=== PATIENT | female | born 1955 | race Caucasian/White ===

== ENCOUNTER 2020-12-24 18:08 | Inpatient (IN) ==
[2020-12-25] MEDS ORDERED: Ipratropium/Albuterol Neb 3 ML IH PRN (15:05)
[2020-12-25] MEDS ORDERED: Dextrose Gel 15 GM/37.5 ML TUBE PO PRN ×2 (15:06)
[2020-12-25] MEDS ORDERED: D5% in Water 1,000 ML IVC PRN (15:06)
[2020-12-25] MEDS ORDERED: *HR* Dextrose 50 % in Water (Syg) 50 ML SYRINGE IVP PRN (15:06)
[2020-12-25] MEDS: Insulin LISPRO 300 UNITS/3 ML VIAL SUBQ SCH (18:58)
[2020-12-25] MEDS: carvediloL 6.25 MG TABLET PO SCH (19:06)
[2020-12-25] MEDS: Ipratropium/Albuterol Neb 3 ML IH SCH (20:54)
[2020-12-25] MEDS: rOPINIRole 1 MG TABLET PO SCH (21:35)
[2020-12-25] MEDS: lisinopriL 20 MG TABLET PO SCH (21:35)
[2020-12-25] MEDS: *HR* Metformin 500 MG TABLET PO SCH (21:44)
[2020-12-25] MEDS: acetaZOLAMIDE 250 MG TABLET PO SCH (21:46)
[2020-12-26] MEDS: rOPINIRole 1 MG TABLET PO SCH ×6 (00:25→22:50)
[2020-12-26] MEDS: Ipratropium/Albuterol Neb 3 ML IH SCH ×4 (03:49→22:06)
[2020-12-26 04:53] LABS: Basophils % 0.2 %; Eosinophils # 0.1 K/mcL (0.0-0.6); Eosinophils % 2.1 %; Hemoglobin 7.5 g/dL (11.5-15.4); Immature Granulocytes % 0.6 % (0-4); Lymphocytes # 0.7 K/mcL (0.6-4.6); Lymphocytes % 12.7 %; Mean Corpuscular HGB Conc 27.8 g/dL (31.6-35.5); Mean Corpuscular Hemoglobin 28.4 pg (28.0-33.3); Mean Corpuscular Volume 102.3 fL (83.0-100.0); Mean Platelet Volume 11.6 fL (9.4-12.4); Monocytes # 0.4 K/mcL (0.0-1.3); Monocytes % 6.7 %; Neutrophils # 4.2 K/mcL (1.6-8.9); Red Blood Count 2.64 M/mcL (3.82-4.97); Segmented Neutrophils % 77.7 %; White Blood Count 5.3 K/mcL (4.3-11.1)
[2020-12-26 04:56] LABS: Platelet Count 79 K/mcL (140-400)
[2020-12-26 05:02] LABS: Platelet Estimate Decreased (Normal)
[2020-12-26 05:03] LABS: Hypochromasia Present (Not Present)
[2020-12-26 05:21] LABS: BUN/Creatinine Ratio 28 (6-26); Blood Urea Nitrogen 31 mg/dL (8-23); Calcium 9.6 mg/dL (8.6-10.3); Carbon Dioxide 40 mEq/L (23-29); Chloride 97 mEq/L (98-107); Glucose 101 mg/dL (70-105); Osmolality,Calculated 299 (280-300); Potassium 4.5 mEq/L (3.5-5.1); Sodium 141 mEq/L (136-145); eGFR For African Americans > 60 (> 60); eGFR For Non-African Americans 50 (> 60)
[2020-12-26] MEDS ORDERED: *HR* Enoxaparin 40 MG/0.4 ML SYRINGE SQ SCH (07:00)
[2020-12-26] MEDS ORDERED: NON-FORMULARY MEDICATION 1 EACH EACH (Fluticasone/Umeclidin/Vilanter [Trelegy Ellipta 100- IH SCH (09:00)
[2020-12-26] MEDS: Insulin LISPRO 300 UNITS/3 ML VIAL SUBQ SCH ×3 (09:05→17:20)
[2020-12-26] MEDS ORDERED: Budesonide/Formoterol 160/4.5 1 PUFF INH IH SCH (10:00)
[2020-12-26] MEDS: *HR* Metformin 500 MG TABLET PO SCH ×2 (10:11→20:42)
[2020-12-26] MEDS: acetaZOLAMIDE 250 MG TABLET PO SCH ×2 (10:15→20:42)
[2020-12-26] MEDS: carvediloL 6.25 MG TABLET PO SCH ×2 (10:15→17:23)
[2020-12-26] MEDS: Tiotropium 10 INH DOSE IH SCH (11:05)
[2020-12-26] MEDS: Loratadine 10 MG TABLET PO SCH (17:23)
[2020-12-26] MEDS: lisinopriL 20 MG TABLET PO SCH (20:41)
[2020-12-27] MEDS: Ipratropium/Albuterol Neb 3 ML IH SCH ×4 (03:38→22:06)
[2020-12-27 06:58] LABS: Hematocrit 28.4 % (35.3-44.9); Hemoglobin 8.1 g/dL (11.5-15.4); Mean Corpuscular HGB Conc 28.5 g/dL (31.6-35.5); Mean Corpuscular Hemoglobin 28.7 pg (28.0-33.3); Mean Corpuscular Volume 100.7 fL (83.0-100.0); Mean Platelet Volume 11.8 fL (9.4-12.4); Platelet Count 102 K/mcL (140-400); Red Blood Count 2.82 M/mcL (3.82-4.97); Red Cell Distribution Width 17.1 % (11.5-14.5); White Blood Count 5.3 K/mcL (4.3-11.1)
[2020-12-27 07:43] LABS: Albumin 4.3 g/dL (3.5-5.7); Bilirubin,Total 0.6 mg/dL (0.3-1.0); Calcium 9.8 mg/dL (8.6-10.3); Globulin 2.1 g/dL (2.4-3.5); Magnesium 1.8 mg/dL (1.6-2.6); Potassium 4.8 mEq/L (3.5-5.1); Total Protein 6.4 g/dL (6.4-8.9)
[2020-12-27] MEDS: Insulin LISPRO 300 UNITS/3 ML VIAL SUBQ SCH ×3 (08:21→16:41)
[2020-12-27] MEDS: carvediloL 6.25 MG TABLET PO SCH ×2 (08:31→17:40)
[2020-12-27] MEDS: acetaZOLAMIDE 250 MG TABLET PO SCH ×2 (08:32→19:48)
[2020-12-27] MEDS: *HR* Metformin 500 MG TABLET PO SCH (08:32)
[2020-12-27] MEDS: Tiotropium 10 INH DOSE IH SCH (11:51)
[2020-12-27] MEDS: Loratadine 10 MG TABLET PO SCH (17:41)
[2020-12-27] MEDS: Acetaminophen 325 MG TABLET PO PRN (18:21)
[2020-12-27] MEDS: lisinopriL 20 MG TABLET PO SCH (19:49)
[2020-12-27] MEDS: Carbamide Peroxide 150 DROP/15 ML BOTTLE LEFT EAR SCH (20:03)
[2020-12-27] MEDS: Carbamide Peroxide 150 DROP/15 ML BOTTLE RIGHT EAR SCH (20:04)
[2020-12-27] MEDS: rOPINIRole 1 MG TABLET PO SCH (21:27)
[2020-12-28] MEDS: Ipratropium/Albuterol Neb 3 ML IH SCH ×4 (04:12→21:48)
[2020-12-28] MEDS: Insulin LISPRO 300 UNITS/3 ML VIAL SUBQ SCH ×3 (09:02→16:48)
[2020-12-28] MEDS: acetaZOLAMIDE 250 MG TABLET PO SCH ×2 (09:10→20:02)
[2020-12-28] MEDS: Carbamide Peroxide 150 DROP/15 ML BOTTLE LEFT EAR SCH ×2 (09:10→20:03)
[2020-12-28] MEDS: carvediloL 6.25 MG TABLET PO SCH ×2 (09:10→16:43)
[2020-12-28] MEDS: Carbamide Peroxide 150 DROP/15 ML BOTTLE RIGHT EAR SCH ×2 (09:10→20:03)
[2020-12-28] MEDS: Tiotropium 10 INH DOSE IH SCH (10:34)
[2020-12-28] MEDS: Loratadine 10 MG TABLET PO SCH (16:46)
[2020-12-28 18:49] LABS: ABG Base Excess 9 mEq/L (-2 to 3); ABG HCO3 39 mEq/L (21-27); ABG Oxygen Saturation 90 % (95-98); ABG PCO2 94 mmHg (35-45); ABG PH 7.22 pH Units (7.32-7.45); ABG PO2 73 mmHg (85-104); ABG TCO2 42 mEq/L (20-26)
[2020-12-28] MEDS: rOPINIRole 1 MG TABLET PO SCH (20:02)
[2020-12-29] MEDS: Ipratropium/Albuterol Neb 3 ML IH SCH ×4 (04:02→22:16)
[2020-12-29] MEDS: Acetaminophen 325 MG TABLET PO PRN ×2 (05:26→21:53)
[2020-12-29 07:19] LABS: Basophils % 0.2 %; Eosinophils # 0.1 K/mcL (0.0-0.6); Hematocrit 24.3 % (35.3-44.9); Immature Granulocytes % 0.5 % (0-4); Lymphocytes # 0.8 K/mcL (0.6-4.6); Lymphocytes % 19.2 %; Mean Corpuscular HGB Conc 28.8 g/dL (31.6-35.5); Mean Corpuscular Hemoglobin 28.9 pg (28.0-33.3); Mean Corpuscular Volume 100.4 fL (83.0-100.0); Mean Platelet Volume 11.5 fL (9.4-12.4); Monocytes # 0.4 K/mcL (0.0-1.3); Neutrophils # 2.7 K/mcL (1.6-8.9); Red Blood Count 2.42 M/mcL (3.82-4.97); Red Cell Distribution Width 16.7 % (11.5-14.5); Segmented Neutrophils % 68.1 %
[2020-12-29 07:20] LABS: Platelet Count 89 K/mcL (140-400)
[2020-12-29 07:36] LABS: Potassium 4.4 mEq/L (3.5-5.1)
[2020-12-29] MEDS: acetaZOLAMIDE 250 MG TABLET PO SCH (07:59)
[2020-12-29] MEDS: carvediloL 6.25 MG TABLET PO SCH ×2 (07:59→16:42)
[2020-12-29] MEDS: Carbamide Peroxide 150 DROP/15 ML BOTTLE RIGHT EAR SCH ×2 (08:00→21:53)
[2020-12-29] MEDS: Insulin LISPRO 300 UNITS/3 ML VIAL SUBQ SCH ×3 (08:13→16:37)
[2020-12-29] MEDS: Carbamide Peroxide 150 DROP/15 ML BOTTLE LEFT EAR SCH ×2 (08:14→21:53)
[2020-12-29] MEDS ORDERED: acetaZOLAMIDE 250 MG TABLET PO SCH (09:00)
[2020-12-29] MEDS: Tiotropium 10 INH DOSE IH SCH (09:24)
[2020-12-29] MEDS: Loratadine 10 MG TABLET PO SCH (16:42)
[2020-12-29] MEDS: rOPINIRole 1 MG TABLET PO SCH (21:53)
[2020-12-29] MEDS: rOPINIRole 1 MG TABLET PO PRN (21:58)
[2020-12-30] MEDS: Ipratropium/Albuterol Neb 3 ML IH SCH ×4 (04:07→21:05)
[2020-12-30 04:27] LABS: Hematocrit 25.5 % (35.3-44.9)
[2020-12-30 04:30] LABS: Hemoglobin 7.2 g/dL (11.5-15.4)
[2020-12-30 04:44] LABS: Calcium 9.1 mg/dL (8.6-10.3); Magnesium 1.8 mg/dL (1.6-2.6); Potassium 4.7 mEq/L (3.5-5.1)
[2020-12-30] MEDS ORDERED: acetaZOLAMIDE 250 MG TABLET PO SCH (09:00)
[2020-12-30] MEDS: Insulin LISPRO 300 UNITS/3 ML VIAL SUBQ SCH ×3 (09:22→16:52)
[2020-12-30] MEDS: Acetaminophen 325 MG TABLET PO PRN ×2 (09:32→16:52)
[2020-12-30] MEDS: carvediloL 6.25 MG TABLET PO SCH ×2 (09:32→16:53)
[2020-12-30] MEDS: Carbamide Peroxide 150 DROP/15 ML BOTTLE LEFT EAR SCH ×2 (09:33→20:48)
[2020-12-30] MEDS: Carbamide Peroxide 150 DROP/15 ML BOTTLE RIGHT EAR SCH ×2 (09:33→20:48)
[2020-12-30] MEDS: Furosemide 40 MG TABLET PO SCH (09:38)
[2020-12-30] MEDS: Tiotropium 10 INH DOSE IH SCH (10:19)
[2020-12-30] MEDS: Loratadine 10 MG TABLET PO SCH (16:53)
[2020-12-30] MEDS: rOPINIRole 1 MG TABLET PO SCH (20:49)
[2020-12-31] MEDS: Ipratropium/Albuterol Neb 3 ML IH SCH ×4 (03:44→21:36)
[2020-12-31 05:36] LABS: Basophils % 0.2 %; Eosinophils # 0.1 K/mcL (0.0-0.6); Eosinophils % 2.5 %; Hematocrit 26.6 % (35.3-44.9); Hemoglobin 7.4 g/dL (11.5-15.4); Immature Granulocytes % 0.8 % (0-4); Lymphocytes # 0.9 K/mcL (0.6-4.6); Lymphocytes % 16.3 %; Mean Corpuscular HGB Conc 27.8 g/dL (31.6-35.5); Mean Corpuscular Hemoglobin 28.8 pg (28.0-33.3); Mean Corpuscular Volume 103.5 fL (83.0-100.0); Mean Platelet Volume 11.1 fL (9.4-12.4); Monocytes # 0.4 K/mcL (0.0-1.3); Monocytes % 7.9 %; Neutrophils # 3.8 K/mcL (1.6-8.9); Platelet Count 101 K/mcL (140-400); Red Blood Count 2.57 M/mcL (3.82-4.97); Red Cell Distribution Width 16.8 % (11.5-14.5); Segmented Neutrophils % 72.3 %; White Blood Count 5.2 K/mcL (4.3-11.1)
[2020-12-31 05:50] LABS: Calcium 8.9 mg/dL (8.6-10.3)
[2020-12-31 06:23] LABS: Basophilic Stippling 1+ (Not Present); Hypochromasia Present (Not Present); Platelet Estimate Slight Decrease (Normal); Polychromasia 1+ (Not Present)
[2020-12-31] MEDS: Insulin LISPRO 300 UNITS/3 ML VIAL SUBQ SCH ×3 (10:15→16:54)
[2020-12-31] MEDS: Tiotropium 10 INH DOSE IH SCH (10:24)
[2020-12-31] MEDS: Furosemide 40 MG TABLET PO SCH (10:26)
[2020-12-31] MEDS: carvediloL 6.25 MG TABLET PO SCH ×2 (10:26→16:54)
[2020-12-31] MEDS: Carbamide Peroxide 150 DROP/15 ML BOTTLE RIGHT EAR SCH ×2 (10:27→21:32)
[2020-12-31] MEDS: Carbamide Peroxide 150 DROP/15 ML BOTTLE LEFT EAR SCH ×2 (10:27→21:32)
[2020-12-31] MEDS ORDERED: Cyanocobalamin (B-12) 1,000 MCG/ML VIAL SQ ONE (15:45)
[2020-12-31] MEDS: Loratadine 10 MG TABLET PO SCH (16:54)
[2020-12-31 17:16] LABS: ABG Base Excess 7 mEq/L (-2 to 3); ABG HCO3 38 mEq/L (21-27); ABG Oxygen Saturation 85 % (95-98); ABG PCO2 95 mmHg (35-45); ABG PH 7.21 pH Units (7.32-7.45); ABG PO2 64 mmHg (85-104); ABG TCO2 41 mEq/L (20-26)
[2020-12-31] MEDS: Acetaminophen 325 MG TABLET PO PRN (19:51)
[2020-12-31] MEDS: rOPINIRole 1 MG TABLET PO SCH (21:32)
[2020-12-31] MEDS: rOPINIRole 1 MG TABLET PO PRN (22:39)
[2021-01-01] MEDS: Ipratropium/Albuterol Neb 3 ML IH SCH ×4 (03:52→20:46)
[2021-01-01] MEDS: metroNIDAZOLE 500 MG TABLET PO SCH ×4 (03:58→20:42)
[2021-01-01] MEDS: Doxycycline 100 MG CAPSULE PO SCH ×3 (03:58→20:42)
[2021-01-01 04:31] LABS: Basophils % 0.3 %; Eosinophils # 0.1 K/mcL (0.0-0.6); Eosinophils % 2.2 %; Hematocrit 26.4 % (35.3-44.9); Hemoglobin 7.3 g/dL (11.5-15.4); Immature Granulocytes % 0.5 % (0-4); Lymphocytes # 0.6 K/mcL (0.6-4.6); Lymphocytes % 17.4 %; Mean Corpuscular HGB Conc 27.7 g/dL (31.6-35.5); Mean Corpuscular Hemoglobin 28.5 pg (28.0-33.3); Mean Corpuscular Volume 103.1 fL (83.0-100.0); Mean Platelet Volume 11.2 fL (9.4-12.4); Monocytes # 0.3 K/mcL (0.0-1.3); Monocytes % 7.6 %; Red Blood Count 2.56 M/mcL (3.82-4.97); Red Cell Distribution Width 16.5 % (11.5-14.5)
[2021-01-01 04:36] LABS: Neutrophils # 2.7 K/mcL (1.6-8.9); Platelet Count 97 K/mcL (140-400); White Blood Count 3.7 K/mcL (4.3-11.1)
[2021-01-01 04:37] LABS: Basophilic Stippling 1+ (Not Present); Platelet Estimate Decreased (Normal)
[2021-01-01 04:38] LABS: Hypochromasia Present (Not Present)
[2021-01-01 04:48] LABS: Albumin 3.9 g/dL (3.5-5.7); Albumin/Globulin Ratio 2.2 (1.1-2.2); Bilirubin,Total 0.7 mg/dL (0.3-1.0); Globulin 1.8 g/dL (2.4-3.5); Total Protein 5.7 g/dL (6.4-8.9)
[2021-01-01] MEDS: Insulin LISPRO 300 UNITS/3 ML VIAL SUBQ SCH ×3 (07:48→16:32)
[2021-01-01] MEDS: Acetaminophen 325 MG TABLET PO PRN (07:52)
[2021-01-01] MEDS: carvediloL 6.25 MG TABLET PO SCH ×2 (07:54→15:58)
[2021-01-01] MEDS: Carbamide Peroxide 150 DROP/15 ML BOTTLE RIGHT EAR SCH ×2 (07:55→20:48)
[2021-01-01] MEDS: Carbamide Peroxide 150 DROP/15 ML BOTTLE LEFT EAR SCH ×2 (07:55→20:43)
[2021-01-01] MEDS: Furosemide 40 MG TABLET PO SCH (07:55)
[2021-01-01] MEDS: Tiotropium 10 INH DOSE IH SCH (09:22)
[2021-01-01] MEDS ORDERED: Furosemide 40 MG/4 ML VIAL IVP ONE (09:39)
[2021-01-01] MEDS ORDERED: 0.9 % Sodium Chloride 250 ML IVC SCH (09:45)
[2021-01-01] MEDS: Loratadine 10 MG TABLET PO SCH (17:02)
[2021-01-01] MEDS: rOPINIRole 1 MG TABLET PO SCH (20:42)
[2021-01-01] MEDS: rOPINIRole 1 MG TABLET PO PRN (22:40)
[2021-01-02 01:14] LABS: Acinetobacter baumannii by PCR Not Detected (Not Detect); Candida albicans by PCR Not Detected (Not Detect); Candida glabrata by PCR Not Detected (Not Detect); Candida krusei by PCR Not Detected (Not Detect); Candida parapsilosis by PCR Not Detected (Not Detect); Candida tropicalis by PCR Not Detected (Not Detect); Enterobacter cloacae Cmplx PCR Not Detected (Not Detect); Enterobacteriaceae by PCR Not Detected (Not Detect); Enterococcus by PCR Not Detected (Not Detect); Escherichia coli by PCR Not Detected (Not Detect); Klebsiella oxytoca by PCR Not Detected (Not Detect); Klebsiella pneumoniae by PCR Not Detected (Not Detect); Proteus by PCR Not Detected (Not Detect); Pseudomonas aeruginosa by PCR Not Detected (Not Detect); Serratia marcescens by PCR Not Detected (Not Detect); Staphylococcus aureus by PCR Not Detected (Not Detect); Staphylococcus by PCR DETECTED (Not Detect); Streptococcus agalactiae(B)PCR Not Detected (Not Detect); Streptococcus by PCR Not Detected (Not Detect); Streptococcus pneumoniae PCR Not Detected (Not Detect); Streptococcus pyogenes (A) PCR Not Detected (Not Detect); mecA Methicillin-Resist Gene DETECTED (Not Detect)
[2021-01-02] MEDS: Ipratropium/Albuterol Neb 3 ML IH SCH ×4 (03:42→20:27)
[2021-01-02 05:08] LABS: Basophils % 0.2 %; Eosinophils # 0.1 K/mcL (0.0-0.6); Eosinophils % 3.2 %; Hematocrit 26.8 % (35.3-44.9); Hemoglobin 7.9 g/dL (11.5-15.4); Immature Granulocytes % 0.5 % (0-4); Lymphocytes % 18.2 %; Mean Corpuscular HGB Conc 29.5 g/dL (31.6-35.5); Mean Corpuscular Hemoglobin 29.3 pg (28.0-33.3); Mean Corpuscular Volume 99.3 fL (83.0-100.0); Monocytes # 0.3 K/mcL (0.0-1.3); Monocytes % 7.4 %; Neutrophils # 2.9 K/mcL (1.6-8.9); Platelet Count 113 K/mcL (140-400); Segmented Neutrophils % 70.5 %; White Blood Count 4.1 K/mcL (4.3-11.1)
[2021-01-02 05:14] LABS: Lymphocytes # 0.8 K/mcL (0.6-4.6); Platelet Estimate Slight Decrease (Normal)
[2021-01-02 05:33] LABS: Albumin 3.8 g/dL (3.5-5.7); Albumin/Globulin Ratio 2.2 (1.1-2.2); Bilirubin,Total 0.5 mg/dL (0.3-1.0); Globulin 1.7 g/dL (2.4-3.5); Magnesium 1.6 mg/dL (1.6-2.6); Potassium 4.7 mEq/L (3.5-5.1); Total Protein 5.5 g/dL (6.4-8.9)
[2021-01-02] MEDS: Insulin LISPRO 300 UNITS/3 ML VIAL SUBQ SCH ×3 (07:49→16:39)
[2021-01-02] MEDS: Furosemide 40 MG TABLET PO SCH (08:02)
[2021-01-02] MEDS: Doxycycline 100 MG CAPSULE PO SCH ×2 (08:02→22:04)
[2021-01-02] MEDS: carvediloL 6.25 MG TABLET PO SCH ×2 (08:02→16:59)
[2021-01-02] MEDS: metroNIDAZOLE 500 MG TABLET PO SCH ×3 (08:02→22:04)
[2021-01-02] MEDS: Carbamide Peroxide 150 DROP/15 ML BOTTLE LEFT EAR SCH ×2 (08:04→22:04)
[2021-01-02] MEDS: Carbamide Peroxide 150 DROP/15 ML BOTTLE RIGHT EAR SCH ×2 (08:05→22:04)
[2021-01-02] MEDS: Acetaminophen 325 MG TABLET PO PRN (08:07)
[2021-01-02] MEDS: Tiotropium 10 INH DOSE IH SCH (10:41)
[2021-01-02] MEDS: rOPINIRole 1 MG TABLET PO SCH (16:59)
[2021-01-02] MEDS: Loratadine 10 MG TABLET PO SCH (16:59)
[2021-01-02] MEDS: rOPINIRole 1 MG TABLET PO PRN (22:05)
[2021-01-03] MEDS: Ipratropium/Albuterol Neb 3 ML IH SCH ×4 (04:13→20:19)
[2021-01-03] MEDS: Insulin LISPRO 300 UNITS/3 ML VIAL SUBQ SCH ×3 (09:14→17:26)
[2021-01-03] MEDS: Furosemide 40 MG TABLET PO SCH (09:14)
[2021-01-03] MEDS: carvediloL 6.25 MG TABLET PO SCH ×2 (09:14→15:22)
[2021-01-03] MEDS: metroNIDAZOLE 500 MG TABLET PO SCH ×3 (09:14→20:54)
[2021-01-03] MEDS: Doxycycline 100 MG CAPSULE PO SCH ×2 (09:14→20:54)
[2021-01-03] MEDS: Carbamide Peroxide 150 DROP/15 ML BOTTLE RIGHT EAR SCH ×2 (09:15→20:54)
[2021-01-03] MEDS: Carbamide Peroxide 150 DROP/15 ML BOTTLE LEFT EAR SCH ×2 (09:15→20:54)
[2021-01-03] MEDS: Tiotropium 10 INH DOSE IH SCH (10:30)
[2021-01-03] MEDS: Loratadine 10 MG TABLET PO SCH (15:22)
[2021-01-03] MEDS: rOPINIRole 1 MG TABLET PO SCH (23:04)
[2021-01-03] MEDS: rOPINIRole 1 MG TABLET PO PRN (23:04)
[2021-01-04] MEDS: Ipratropium/Albuterol Neb 3 ML IH SCH ×4 (04:27→22:04)
[2021-01-04 08:27] LABS: Hematocrit 29.6 % (35.3-44.9); Hemoglobin 8.6 g/dL (11.5-15.4); Mean Corpuscular HGB Conc 29.1 g/dL (31.6-35.5); Mean Corpuscular Hemoglobin 28.6 pg (28.0-33.3); Mean Corpuscular Volume 98.3 fL (83.0-100.0); Mean Platelet Volume 10.9 fL (9.4-12.4); Platelet Count 124 K/mcL (140-400); Red Blood Count 3.01 M/mcL (3.82-4.97); Red Cell Distribution Width 16.4 % (11.5-14.5); White Blood Count 3.6 K/mcL (4.3-11.1)
[2021-01-04] MEDS: Insulin LISPRO 300 UNITS/3 ML VIAL SUBQ SCH ×3 (09:36→16:49)
[2021-01-04] MEDS: metroNIDAZOLE 500 MG TABLET PO SCH ×3 (09:37→20:14)
[2021-01-04] MEDS: Carbamide Peroxide 150 DROP/15 ML BOTTLE RIGHT EAR SCH ×2 (09:37→20:15)
[2021-01-04] MEDS: Doxycycline 100 MG CAPSULE PO SCH ×2 (09:37→20:14)
[2021-01-04] MEDS: Carbamide Peroxide 150 DROP/15 ML BOTTLE LEFT EAR SCH ×2 (09:37→20:15)
[2021-01-04] MEDS: Furosemide 40 MG TABLET PO SCH (09:37)
[2021-01-04] MEDS: carvediloL 6.25 MG TABLET PO SCH ×2 (09:37→16:48)
[2021-01-04 09:39] LABS: Alanine Aminotransferase 13 Units/L (7-52); Albumin 3.9 g/dL (3.5-5.7); Albumin/Globulin Ratio 1.6 (1.1-2.2); Alkaline Phosphatase 42 Units/L (34-104); Aspartate Amino Transferase 16 Units/L (13-39); BUN/Creatinine Ratio 25 (6-26); Bilirubin,Total 0.6 mg/dL (0.3-1.0); Blood Urea Nitrogen 28 mg/dL (8-23); Calcium 9.3 mg/dL (8.6-10.3); Carbon Dioxide 42 mEq/L (23-29); Chloride 96 mEq/L (98-107); Globulin 2.4 g/dL (2.4-3.5); Glucose 95 mg/dL (70-105); Magnesium 1.5 mg/dL (1.6-2.6); Osmolality,Calculated 297 (280-300); Potassium 4.2 mEq/L (3.5-5.1); Sodium 141 mEq/L (136-145); Total Protein 6.3 g/dL (6.4-8.9); eGFR For African Americans > 60 (> 60); eGFR For Non-African Americans 50 (> 60)
[2021-01-04] MEDS: Tiotropium 10 INH DOSE IH SCH (09:46)
[2021-01-04] MEDS: Acetaminophen 325 MG TABLET PO PRN (12:19)
[2021-01-04] MEDS: Loratadine 10 MG TABLET PO SCH (16:49)
[2021-01-04] MEDS: rOPINIRole 1 MG TABLET PO SCH (20:14)
[2021-01-04] MEDS: Nystatin POWDER 30 GM BOTTLE TP SCH (20:15)
[2021-01-05] MEDS: Acetaminophen 325 MG TABLET PO PRN ×3 (00:01→19:55)
[2021-01-05] MEDS: rOPINIRole 1 MG TABLET PO PRN (00:02)
[2021-01-05] MEDS: Ipratropium/Albuterol Neb 3 ML IH SCH ×4 (04:02→20:50)
[2021-01-05] MEDS: Insulin LISPRO 300 UNITS/3 ML VIAL SUBQ SCH ×3 (09:23→16:36)
[2021-01-05] MEDS: carvediloL 6.25 MG TABLET PO SCH ×2 (09:25→16:37)
[2021-01-05] MEDS: Nystatin POWDER 30 GM BOTTLE TP SCH ×3 (09:26→20:05)
[2021-01-05] MEDS: Furosemide 40 MG TABLET PO SCH (09:26)
[2021-01-05] MEDS: Doxycycline 100 MG CAPSULE PO SCH ×2 (09:26→19:56)
[2021-01-05] MEDS: Carbamide Peroxide 150 DROP/15 ML BOTTLE LEFT EAR SCH ×2 (09:26→20:02)
[2021-01-05] MEDS: Carbamide Peroxide 150 DROP/15 ML BOTTLE RIGHT EAR SCH ×2 (09:26→20:02)
[2021-01-05] MEDS: metroNIDAZOLE 500 MG TABLET PO SCH ×3 (09:26→19:55)
[2021-01-05] MEDS: Tiotropium 10 INH DOSE IH SCH (10:20)
[2021-01-05] MEDS: Loratadine 10 MG TABLET PO SCH (16:37)
[2021-01-05] MEDS: rOPINIRole 1 MG TABLET PO SCH (21:27)
[2021-01-06] MEDS: rOPINIRole 1 MG TABLET PO PRN ×2 (00:44→23:43)
[2021-01-06] MEDS: Ipratropium/Albuterol Neb 3 ML IH SCH ×4 (03:55→20:58)
[2021-01-06 05:01] LABS: Hemoglobin 8.1 g/dL (11.5-15.4); Mean Corpuscular HGB Conc 28.9 g/dL (31.6-35.5); Mean Corpuscular Hemoglobin 28.6 pg (28.0-33.3); Mean Corpuscular Volume 98.9 fL (83.0-100.0); Mean Platelet Volume 10.8 fL (9.4-12.4); Platelet Count 115 K/mcL (140-400); Red Blood Count 2.83 M/mcL (3.82-4.97); Red Cell Distribution Width 16.1 % (11.5-14.5); White Blood Count 3.5 K/mcL (4.3-11.1)
[2021-01-06 05:34] LABS: Alanine Aminotransferase 13 Units/L (7-52); Albumin 3.6 g/dL (3.5-5.7); Albumin/Globulin Ratio 1.8 (1.1-2.2); Alkaline Phosphatase 42 Units/L (34-104); Aspartate Amino Transferase 15 Units/L (13-39); BUN/Creatinine Ratio 21 (6-26); Bilirubin,Total 0.5 mg/dL (0.3-1.0); Blood Urea Nitrogen 23 mg/dL (8-23); Calcium 9.1 mg/dL (8.6-10.3); Carbon Dioxide 40 mEq/L (23-29); Chloride 97 mEq/L (98-107); Glucose 100 mg/dL (70-105); Magnesium 1.7 mg/dL (1.6-2.6); Osmolality,Calculated 294 (280-300); Potassium 4.2 mEq/L (3.5-5.1); Sodium 140 mEq/L (136-145); Total Protein 5.6 g/dL (6.4-8.9); eGFR For African Americans > 60 (> 60); eGFR For Non-African Americans 50 (> 60)
[2021-01-06] MEDS: Doxycycline 100 MG CAPSULE PO SCH ×2 (08:39→20:27)
[2021-01-06] MEDS: Insulin LISPRO 300 UNITS/3 ML VIAL SUBQ SCH ×3 (08:39→17:18)
[2021-01-06] MEDS: Furosemide 40 MG TABLET PO SCH (08:39)
[2021-01-06] MEDS: Acetaminophen 325 MG TABLET PO PRN ×2 (08:39→17:18)
[2021-01-06] MEDS: metroNIDAZOLE 500 MG TABLET PO SCH ×3 (08:40→20:27)
[2021-01-06] MEDS: carvediloL 6.25 MG TABLET PO SCH ×2 (08:40→17:18)
[2021-01-06] MEDS: Carbamide Peroxide 150 DROP/15 ML BOTTLE LEFT EAR SCH ×2 (08:41→20:30)
[2021-01-06] MEDS: Carbamide Peroxide 150 DROP/15 ML BOTTLE RIGHT EAR SCH ×2 (08:41→20:30)
[2021-01-06] MEDS: Nystatin POWDER 30 GM BOTTLE TP SCH ×3 (08:42→20:30)
[2021-01-06] MEDS: Tiotropium 10 INH DOSE IH SCH (10:47)
[2021-01-06] MEDS: Loratadine 10 MG TABLET PO SCH (17:18)
[2021-01-06] MEDS: rOPINIRole 1 MG TABLET PO SCH (20:29)
[2021-01-07] MEDS: Ipratropium/Albuterol Neb 3 ML IH SCH ×2 (04:24→10:27)
[2021-01-07 07:15] VITALS: BP 155/80; PULSE 85; RESP 18; TEMP 98.7
[2021-01-07] MEDS: Insulin LISPRO 300 UNITS/3 ML VIAL SUBQ SCH ×2 (07:42→13:30)
[2021-01-07] MEDS: metroNIDAZOLE 500 MG TABLET PO SCH (07:45)
[2021-01-07] MEDS: carvediloL 6.25 MG TABLET PO SCH (07:46)
[2021-01-07] MEDS: Furosemide 40 MG TABLET PO SCH (07:46)
[2021-01-07] MEDS: Acetaminophen 325 MG TABLET PO PRN (07:46)
[2021-01-07] MEDS: Doxycycline 100 MG CAPSULE PO SCH (07:46)
[2021-01-07] MEDS: Tiotropium 10 INH DOSE IH SCH (10:25)
[2021-01-07 10:33] VITALS: O2SAT 85
[2021-01-07] MEDS: Carbamide Peroxide 150 DROP/15 ML BOTTLE LEFT EAR SCH (13:30)
[2021-01-07] MEDS: Carbamide Peroxide 150 DROP/15 ML BOTTLE RIGHT EAR SCH (13:30)
[2021-01-07] MEDS: Nystatin POWDER 30 GM BOTTLE TP SCH ×2 (13:30→16:02)
== END 2021-01-07 16:03 | disposition home health service (06) | DRG 698 ==
LOC: INPGRE 12-25 17:34
PROVIDERS: ADMIT Family Medicine; ATTEND Family Medicine